=== PATIENT | female | born 1990 | race African-American/Black ===

== ENCOUNTER 2023-06-11 11:23 | Emergency (ER) | payer OTHER ==
[~2023-06-11] VITALS: Ht 157.5 cm; Wt 48.7 kg
[2023-06-11] MEDS ORDERED: TRIA0.1O TOP (12:43)
[2023-06-11] MEDS ORDERED: CEPH500C PO (12:43)
[2023-06-11 12:46] VITALS: BP 91/64; PULSE 79; RESP 16; TEMP 97.9; O2SAT 97
== END 2023-06-11 12:49 | disposition home or self-care (01) ==
LOC: ER 11:23
DX: L30.1 Dyshidrosis [pompholyx] (principal); Z88.0 Allergy status to penicillin

== ENCOUNTER 2023-08-25 19:01 | Emergency (ER) | payer OTHER ==
[~2023-08-25] VITALS: Ht 157.5 cm; Wt 50.7 kg
[~2023-08-25 19:01] MED LIST: CEPH500C PO; TRIA0.1O TOP
[2023-08-25 19:15] VITALS: BP 104/67; PULSE 127; RESP 20; O2SAT 95
[2023-08-25] MEDS ORDERED: SODIUM CHLORIDE 0.9% 1,000 ML IV ONE (19:30)
[2023-08-25] MEDS ORDERED: IBUPROFEN 600 MG TAB PO ONE (19:45)
[2023-08-25] MEDS ORDERED: MECLIZINE HCL 25 MG TAB PO ONE (19:45)
[2023-08-25] MEDS ORDERED: ONDANSETRON ODT 4 MG TAB PO ONE (19:45)
[2023-08-25 20:16] LABS: Basophils # (auto) 0 10 ^3/uL (0-0.2); Basophils % (auto) 0.4 % (0.0-2.0); Eosinophils # (auto) 0 10 ^3/uL (0-0.8); Eosinophils % (auto) 0.5 % (0.0-7.0); Hematocrit 35.1 % (36.0-46.0); Hemoglobin 11.5 g/dL (12.2-16.2); Lymphocytes # (auto) 3.5 10 ^3/uL (0.4-5.4); Lymphocytes % (auto) 45.8 % (10.0-50.0); Mean Corpuscular Hgb Conc. 32.8 g/dL (32.0-36.0); Mean Corpuscular Volume 88.2 fL (80.0-100.0); Monocytes # (auto) 0.7 10 ^3/uL (0-1.3); Monocytes % (auto) 9.9 % (0.0-12.0); Neutrophils # (auto) 3.3 10 ^3/uL (1.6-8.6); Neutrophils % (auto) 43.4 % (37.0-80.0); Nucleated Red Blood Cells % 0.3 %; Red Blood Cells 3.97 10^6/uL (4.0-5.20); Red Cell Distribution Width 14.3 % (11.8-14.3); White Blood Cell 7.6 10^3/uL (4.4-10.8)
[2023-08-25 20:27] LABS: Alanine Aminotransferase 32 U/L (7-40); Albumin 3.3 g/dL (3.2-4.8); Alkaline Phosphatase 63 U/L (46-116); Anion Gap 5 (5-15); Aspartate Aminotransferase 81 U/L (13-40); BUN/Creatinine Ratio 8.5 (10.0-20.0); Blood Urea Nitrogen 11 mg/dL (9-23); Calcium 8.5 mg/dL (8.7-10.4); Carbon Dioxide 25 mmol/L (20-30); Chloride 100 mmol/L (98-107); Glucose 90 mg/dL (74-106); Potassium 3.5 mmol/L (3.5-5.1); Sodium 130 mmol/L (136-145)
[2023-08-25 21:58] LABS: Bilirubin, Total 0.9 mg/dL (0.2-1.0); Total Protein 10.4 g/dL (5.7-8.2)
== END 2023-08-25 23:10 | disposition left against medical advice (07) ==
LOC: ER 19:01
DX: R42 Dizziness and giddiness (principal); R11.2 Nausea with vomiting, unspecified; Z53.21 Procedure and treatment not carried out due to patient leaving prior to being seen by health care provider
CPT/HCPCS: 36415; 70450; 72125; 80053; 84484; 85025; 93005